=== PATIENT | male | born 1945 | race Caucasian/White ===

== ENCOUNTER 2022-08-05 21:03 | Emergency (ER) | payer MEDICARE, OTHER ==
[~2022-08-05] VITALS: Ht 177.8 cm; Wt 91.6 kg
--- NOTE | 2022-08-05 22:05 | NUR ---
Dr. Groves at bedside. MSE in progress.
[2022-08-05] MEDS ORDERED: HYDR-3980 PO (23:00)
--- NOTE | 2022-08-05 23:10 | NUR ---
Patient a/o x 4. NAD noted. All belongings with patient. Patient discharged to home in stable condition. Written and verbal after care instructions given. Patient verbalizes understanding of instructions. Stressed follow up or return to ER for worsening s/s.
[2022-08-05 23:18] VITALS: BP 118/53
== END 2022-08-05 23:12 | disposition home or self-care (01) ==
LOC: ER 21:03
DX: M25.462 Effusion, left knee (principal); I48.91 Unspecified atrial fibrillation; E78.5 Hyperlipidemia, unspecified; K21.9 Gastro-esophageal reflux disease without esophagitis; Z79.899 Other long term (current) drug therapy; W01.0XXA Fall on same level from slipping, tripping and stumbling without subsequent striking against object, initial encounter; Y93.89 Activity, other specified; Y92.89 Other specified places as the place of occurrence of the external cause; Y99.8 Other external cause status
CPT/HCPCS: A4663

== ENCOUNTER 2022-08-30 12:27 | Emergency (ER) | payer MEDICARE, OTHER ==
[~2022-08-30] VITALS: Ht 177.8 cm; Wt 97.5 kg
[~2022-08-30 12:27] MED LIST: HYDR-3980 PO
[2022-08-30] MEDS ORDERED: TRAMADOL HCL 50 MG TABLET PO ONE (12:45)
[2022-08-30] MEDS ORDERED: ACETAMINOPHEN 325 MG TABLET PO ONE (12:45)
[2022-08-30] MEDS ORDERED: ACETAMINOPHEN 325 MG TABLET ONE (12:53)
[2022-08-30] MEDS ORDERED: TRAMADOL HCL 50 MG TABLET ONE (12:53)
--- NOTE | 2022-08-30 13:02 | NUR ---
Xray in progress.
--- NOTE | 2022-08-30 13:28 | NUR ---
Patient is resting comfortably in bed with eyes closed, NAD noted.
[2022-08-30] MEDS ORDERED: TRAM100C3 PO (15:02)
--- NOTE | 2022-08-30 16:10 | NUR ---
Patient discharged to home in stable condition. Written and verbal after care instructions given. Patient verbalizes understanding of instructions. Stressed follow up or return to ER for worsening s/s. Pt left ER accompained by clinical care leader.
[2022-08-30 16:11] VITALS: BP 100/50
== END 2022-08-30 16:11 | disposition home or self-care (01) ==
LOC: ER 12:27
DX: S92.355A Nondisplaced fracture of fifth metatarsal bone, left foot, initial encounter for closed fracture (principal); I48.91 Unspecified atrial fibrillation; E78.5 Hyperlipidemia, unspecified; K21.9 Gastro-esophageal reflux disease without esophagitis; I25.10 Atherosclerotic heart disease of native coronary artery without angina pectoris; Z79.899 Other long term (current) drug therapy; W18.39XA Other fall on same level, initial encounter; Y93.89 Activity, other specified; Y92.89 Other specified places as the place of occurrence of the external cause; Y99.8 Other external cause status
CPT/HCPCS: 73630; A4663

== ENCOUNTER 2022-11-10 12:19 | Emergency (ER) | payer MEDICARE, OTHER ==
[~2022-11-10] VITALS: Ht 177.8 cm; Wt 99.8 kg
[~2022-11-10 12:19] MED LIST changes: +TRAM100C3 PO
[2022-11-10] MEDS ORDERED: DEXAMETHASONE SOD PHOSPHATE 10 MG INJ ONE (12:48)
[2022-11-10] MEDS ORDERED: DEXAMETHASONE SOD PHOSPHATE 4 MG INJ IM ONE (13:00)
[2022-11-10 18:32] VITALS: BP 118/80; TEMP 98; O2SAT 99
== END 2022-11-10 18:32 | disposition home or self-care (01) ==
LOC: ER 12:19
DX: M25.511 Pain in right shoulder (principal); I48.91 Unspecified atrial fibrillation; E78.5 Hyperlipidemia, unspecified; K21.9 Gastro-esophageal reflux disease without esophagitis; Z79.899 Other long term (current) drug therapy; Z20.822 Contact with and (suspected) exposure to COVID-19
CPT/HCPCS: 99285; 73200; 87426; 73030; 96372; J1100; A4663